=== PATIENT | male | born 1965 | race Hispanic/Latino ===

== ENCOUNTER 2021-07-06 07:49 | Day surgery (SDC) | payer OTHER ==
[2021-07-03 14:04] LABS: BASOPHILS % (AUTO) 0.8 % (0.0-5.0); EOSINOPHILS % (AUTO) 3.6 % (0.0-8.0); HEMATOCRIT 46.2 % (42-54); LYMPHOCYTES % (AUTO) 39.2 % (21.0-51.0); MEAN CORPUSCULAR HEMOGLOBIN 25.4 pg (27.0-33.0); MEAN CORPUSCULAR HGB CONC 30.7 g/dL (32.0-36.0); MEAN CORPUSCULAR VOLUME 82.6 fL (79-99); MONOCYTES % (AUTO) 7.3 % (3.0-13.0); NEUTROPHILS % (AUTO) 48.7 % (40.0-77.0); PLATELET COUNT (AUTO) 233 K/uL (130-400); RED BLOOD CELL COUNT(AUTO) 5.59 MIL/uL (4.50-6.20); RED CELL DISTRIBUTION WIDTH 15.2 % (11.0-15.5); WHITE BLOOD COUNT (AUTO) 5.3 K/uL (4.8-10.8)
[2021-07-03 14:15] LABS: PROTHROMBIN TIME 10.9 SEC (9.6-11.6)
[2021-07-03 14:37] LABS: POTASSIUM 3.9 mmol/L (3.5-5.1)
[2021-07-05 09:39] VITALS: BP 139/74
[2021-07-06] VITALS (17 sets, daily range): BP systolic 118–156; BP diastolic 76–89
[~2021-07-06] VITALS: Ht 180.3 cm; Wt 118.4 kg
[~2021-07-06 07:49] MED LIST: 0.9% NACL 500ML IV.SOLN 500 ML IV SCH; ANASTROZOLE PO; ATOR10TA69 PO; CHLO4TAB32 PO; LEVO25TA9 PO; OMEP20CA12 PO; POTASSIUM CITRATE PO
[2021-07-06] MEDS ORDERED: LACTATED RINGERS 1000ML 1,000 ML IV ONE (08:14)
[2021-07-06] MEDS: CLINDAMYCIN IVPB 900MG/50ML 50 ML IV SCH ×2 (08:47→10:40)
[2021-07-06] MEDS ORDERED: LIDOCAINE PF 100MG/5ML (2%) SYRINGE 5ML ONE (09:08)
[2021-07-06] MEDS ORDERED: ONDANSETRON 4MG INJ ONE (09:08)
[2021-07-06] MEDS ORDERED: SUCCINYLCHOLINE CHLORIDE 20 MG/ML 10 ML VIAL ONE (09:08)
[2021-07-06] MEDS ORDERED: SUCCINYLCHOLINE 200MG/10ML SYR ONE (09:08)
[2021-07-06] MEDS ORDERED: GLYCOPYRROLATE 1 MG/5 ML SYRINGE ONE (09:09)
[2021-07-06] MEDS ORDERED: MIDAZOLAM HCL 1 MG/ML 2ML VIAL ONE (09:09)
[2021-07-06] MEDS ORDERED: PROPOFOL 10 MG/ML 20ML VIAL IV ONE ×2 (09:09→11:17)
[2021-07-06] MEDS ORDERED: DEXAMETHASONE SOD PHOSPHATE 10MG/ML 1ML VIAL ONE (09:09)
[2021-07-06] MEDS ORDERED: NEOSTIGMINE 5MG/5ML SYR IV ONE (09:09)
[2021-07-06] MEDS ORDERED: ROCURONIUM 10MG/1ML SYR 10 MG/ML ML ONE (09:10)
[2021-07-06] MEDS ORDERED: FENTANYL CITRATE PF 50 MCG/1 ML 2ML VIAL ONE (09:10)
[2021-07-06] MEDS ORDERED: MEPERIDINE-PF 25 MG/ML SYG ONE ×3 (10:47→12:03)
[2021-07-06] MEDS ORDERED: BUPIVACAINE/PF 0.5% 10ML VIAL ONE (10:55)
== END 2021-07-06 13:35 | disposition home or self-care (01) ==
LOC: DAH 07:49
PROVIDERS: ATTEND Surgery
DX: K42.0 Umbilical hernia with obstruction, without gangrene (principal); Z20.822 Contact with and (suspected) exposure to COVID-19; E78.00 Pure hypercholesterolemia, unspecified; E66.9 Obesity, unspecified; Z79.01 Long term (current) use of anticoagulants; Z79.899 Other long term (current) drug therapy; Z88.0 Allergy status to penicillin; Z88.8 Allergy status to other drugs, medicaments and biological substances; Z98.890 Other specified postprocedural states; Z82.49 Family history of ischemic heart disease and other diseases of the circulatory system
CPT/HCPCS: 36415; 49587; 71045; 80048; 85025; 85610; 87635; 93005; A4215; A4221; A4222; A4223 ×2; A4663; A4930; A6260; C1781; C9803; G0168; J0330 ×2; J1100; J2001; J2175 ×3; J2250; J2405; J2704 ×2; J2710; J3010; J3490 ×3; J7120